=== PATIENT | male | born 1955 | race Caucasian/White ===

== ENCOUNTER 2017-01-05 15:11 | Outpatient (CLI) | payer MEDICARE ==
[2017-01-05 15:40] LABS: INR-International Normal Ratio 1.3; PTT 30.7 SEC (22.9-36.1); Prothrombin Time 16.9 SEC (12.0-14.7)
== END 2017-01-05 15:12 | disposition home or self-care (01) ==
LOC: HPCALD 15:11
PROVIDERS: ATTEND Physician Assistant
DX: Z51.81 Encounter for therapeutic drug level monitoring (principal); Z79.899 Other long term (current) drug therapy
CPT/HCPCS: 36415; 85610; 85730

== ENCOUNTER 2017-01-13 11:10 | Outpatient (CLI) | payer MEDICARE ==
[2017-01-13 11:59] LABS: INR-International Normal Ratio 2.1; Prothrombin Time 24.5 SEC (12.0-14.7)
[2017-01-13 12:00] LABS: PTT 38.2 SEC (22.9-36.1)
== END 2017-01-13 11:11 | disposition home or self-care (01) ==
LOC: HPCALD 11:10
PROVIDERS: ATTEND Physician Assistant
DX: I82.412 Acute embolism and thrombosis of left femoral vein (principal)
CPT/HCPCS: 36415; 85610; 85730

== ENCOUNTER 2017-01-20 10:29 | Outpatient (CLI) | payer MEDICARE ==
[2017-01-20 11:13] LABS: PTT 38.3 SEC (22.9-36.1); Prothrombin Time 23.5 SEC (12.0-14.7)
== END 2017-01-20 10:30 | disposition home or self-care (01) ==
LOC: HPCALD 10:29
PROVIDERS: ATTEND Physician Assistant
DX: I82.412 Acute embolism and thrombosis of left femoral vein (principal)
CPT/HCPCS: 36415; 85610; 85730

== ENCOUNTER 2017-02-03 10:36 | Outpatient (CLI) | payer MEDICARE ==
[2017-02-03 11:20] LABS: INR-International Normal Ratio 2.1; PTT 37.6 SEC (22.9-36.1); Prothrombin Time 23.9 SEC (12.0-14.7)
== END 2017-02-03 10:37 | disposition home or self-care (01) ==
LOC: HPCALD 10:36
PROVIDERS: ATTEND Physician Assistant
DX: I82.412 Acute embolism and thrombosis of left femoral vein (principal)
CPT/HCPCS: 36415; 85610; 85730

== ENCOUNTER 2017-02-17 11:20 | Outpatient (CLI) | payer MEDICARE ==
[2017-02-17 11:43] LABS: Prothrombin Time 13.7 SEC (12.0-14.7)
== END 2017-02-17 11:21 | disposition home or self-care (01) ==
LOC: HPCALD 11:20
PROVIDERS: ATTEND Physician Assistant
DX: I82.412 Acute embolism and thrombosis of left femoral vein (principal)
CPT/HCPCS: 36415; 85610

== ENCOUNTER 2017-03-07 09:37 | Outpatient (CLI) | payer MEDICARE ==
[2017-03-07 10:15] LABS: Prothrombin Time 32.7 SEC (12.0-14.7)
== END 2017-03-07 09:38 | disposition home or self-care (01) ==
LOC: HPCALD 09:37
PROVIDERS: ATTEND Physician Assistant
DX: I82.412 Acute embolism and thrombosis of left femoral vein (principal)
CPT/HCPCS: 36415; 85610

== ENCOUNTER 2017-03-23 09:10 | Outpatient (CLI) | payer MEDICARE ==
[2017-03-23 09:48] LABS: INR-International Normal Ratio 1.4; PTT 29.4 SEC (22.9-36.1); Prothrombin Time 17.4 SEC (12.0-14.7)
== END 2017-03-23 09:11 | disposition home or self-care (01) ==
LOC: HPCALD 09:10
PROVIDERS: ATTEND Physician Assistant
DX: Z51.81 Encounter for therapeutic drug level monitoring (principal); I82.412 Acute embolism and thrombosis of left femoral vein; Z79.01 Long term (current) use of anticoagulants
CPT/HCPCS: 36415; 85610; 85730

== ENCOUNTER 2020-03-10 10:07 | Emergency (ER) | payer MEDICARE ==
[2020-03-10 10:56] LABS: Hemoglobin 13.5 g/dL (14.0-18.0); Mean Corpuscular HGB CONC 33.2 g/dL (32.0-36.0); Mean Corpuscular Hemoglobin 35.3 pg (27.0-31.0); Mean Platelet Volume 8.7 fL (7.4-10.4); Platelet Count 254 thou/uL (130-400); Red Blood Cell (RBC) Count 3.82 mill/uL (4.70-6.10); White Blood Cell (WBC) Count 10.7 thou/uL (4.8-10.8)
[2020-03-10 11:10] LABS: ALT (SGPT) 17 U/L (8-55); AST (SGOT) 11 U/L (5-34); Albumin 3.7 g/dL (3.4-4.8); Alkaline Phosphatase 85 U/L (40-110); Anion Gap 16 mmol/L (10-20); BUN (Urea Nitrogen) 11 mg/dL (8.4-25.7); Bilirubin, Total 0.9 mg/dL (0.2-1.2); Calc. Creatinine Clearance 0 mL/min (70-130); Calcium 8.5 mg/dL (7.8-10.44); Carbon Dioxide 25 mmol/L (23-31); Chloride 99 mmol/L (98-107); Estimated GFR-MDRD 57; Globulin 3.9 g/dL (2.4-3.5); Glucose 328 mg/dL (80-115); Potassium 4.8 mmol/L (3.5-5.1); Protein, Total 7.6 g/dL (5.8-8.1); Sodium 135 mmol/L (136-145)
[2020-03-10 11:23] LABS: PTT 26.7 sec (22.9-36.1); Prothrombin Time 13.4 sec (12.0-14.7)
[2020-03-10 11:31] LABS: D-Dimer Test 1.55 *mcg/mL (0.27-0.43)
[2020-03-10 11:32] LABS: #Basophils 0.1 thou/uL (0.0-0.2); #Lymphocytes 0.9 thou/uL (1.20-3.40); #Monocytes 0.9 thou/uL (0.11-0.59); #Neutrophils 8.8 thou/uL (1.40-6.50); %Basophils 1.2 % (0.0-1.0); %Eosinophils 0.2 % (0.0-10.0); %Monocytes 8.3 % (0.0-10.0); %Neutrophils 82.3 % (42.0-75.0); MDiff Complete? YES; Macrocytosis SLIGHT = 6-15 cells (100X) (0-5/hpf); Platelet Morphology Comment Appears Adequate
[2020-03-10] MEDS ORDERED: Aspirin Chewable 81 MG TAB ONE (12:08)
[2020-03-10] MEDS ORDERED: Enoxaparin Sodium 100 MG/ML SYRINGE ONE (12:08)
--- NOTE | 2020-03-10 17:43 | CT ---
CT ANGIO OF THE CHEST: 03/10/[address] of the chest was done after a bolus of IV contrast for evaluation of this patient with leg pain and an elevated D-dimer. There is excellent opacification of the pulmonary arteries with no filling defects to suggest emboli. There was no sign of aortic aneurysm or dissection. There are probably some calcifications in the pa tient's LAD. No pericardial effusions were seen. There was no sign of mediastinal mass or adenopathy. Some dependent atelectasis is seen in the lower lobes posteriorly and there is an area of atelectasi s or scarring in the right lower lobe. There is no pleural effusion or pneumothorax. A portion of the liver was seen which is low in densities suggesting diffuse fatty infiltration. A po rtion of the spleen was seen that shows two lucent cystic appearing areas within it. It is difficult to fully assess since the entire spleen was not scanned but the most likely causes would be either sp lenic cysts or prior splenic infarction. There were no prior films available to compare with. IMPRESSION: 1. No evidence of pulmonary embolism, aneurysm or dissection. 2. Basilar atelectasis and scarring. 3. Cystic appearing areas in the visible portions of the spleen. Cysts or prior infarcts are con siderations. Preliminary report discussed with Dr. Samayoa at 12:28 on 03/10/20. POS: HOME
== END 2020-03-10 13:18 | disposition short-term general hospital (02) ==
LOC: BURERS 10:07
DX: I82.403 Acute embolism and thrombosis of unspecified deep veins of lower extremity, bilateral (principal); D64.9 Anemia, unspecified; E11.65 Type 2 diabetes mellitus with hyperglycemia; I10 Essential (primary) hypertension; Z86.73 Personal history of transient ischemic attack (TIA), and cerebral infarction without residual deficits; F17.210 Nicotine dependence, cigarettes, uncomplicated; Z79.84 Long term (current) use of oral hypoglycemic drugs; Z79.899 Other long term (current) drug therapy
CPT/HCPCS: 71275; 80053; 80307; 85025; 85379; 85610; 85730; 93005; 96360; 96372; J1650

== ENCOUNTER 2020-05-27 12:30 | Emergency (ER) | payer MEDICARE ==
[2020-05-27 13:12] LABS: Hemoglobin 15.4 g/dL (14.0-18.0); Mean Platelet Volume 9.3 fL (7.4-10.4); Platelet Count 318 thou/uL (130-400); RBC Distribution Width 12.4 % (11.5-14.5); Red Blood Cell (RBC) Count 4.27 mill/uL (4.70-6.10); White Blood Cell (WBC) Count 12.9 thou/uL (4.8-10.8)
[2020-05-27 13:17] LABS: Prothrombin Time 13.4 sec (12.0-14.7)
[2020-05-27 13:18] LABS: PTT 28.3 sec (22.9-36.1)
[2020-05-27 13:20] LABS: Bilirubin Small (Negative); Blood, Urine Negative (Negative); Clarity Clear (Clear); Glucose, Urine (Dipstick) 500 mg/dL (Negative); Ketone, Urine 15 mg/dL (Negative); Leukocyte Negative (Negative); Nitrite Negative (Negative); Protein, Urine (Dipstick) Trace mg/dL (Neg-Trace); Specific Gravity, Urine 1.025 (1.005-1.030); Urobilinogen 0.2 mg/dL (Less than 2)
[2020-05-27 13:27] LABS: ALT (SGPT) 27 U/L (8-55); AST (SGOT) 15 U/L (5-34); Alcohol Less than 10 mg/dL (Less than 10); Alkaline Phosphatase 88 U/L (40-110); Anion Gap 20 mmol/L (10-20); BUN (Urea Nitrogen) 18 mg/dL (8.4-25.7); Bilirubin, Total 1.3 mg/dL (0.2-1.2); Calc. Creatinine Clearance 0 mL/min (70-130); Calcium 9.5 mg/dL (7.8-10.44); Carbon Dioxide 24 mmol/L (23-31); Chloride 98 mmol/L (98-107); Globulin 4.3 g/dL (2.4-3.5); Glucose 370 mg/dL (80-115); Potassium 4.7 mmol/L (3.5-5.1); Protein, Total 8.3 g/dL (5.8-8.1)
[2020-05-27] MEDS ORDERED: cefTRIAXone\\ROCEPHIN 1 GM VIAL ONE (13:28)
[2020-05-27 13:32] LABS: #Basophils 0.1 thou/uL (0.0-0.2); #Eosinphils 0.1 thou/uL (0.0-0.7); #Lymphocytes 2.4 thou/uL (1.20-3.40); #Neutrophils 9.4 thou/uL (1.40-6.50); %Basophils 0.5 % (0.0-1.0); %Eosinophils 0.7 % (0.0-10.0); %Lymphocytes 18.5 % (21.0-51.0); %Monocytes 7.3 % (0.0-10.0); Anisocytosis SLIGHT = 6-15 cells (100X) (0-5/hpf); MDiff Complete? YES; Macrocytosis SLIGHT = 6-15 cells (100X) (0-5/hpf); Platelet Morphology Comment Appears Adequate; Polychromasia SLIGHT = 2-3 cells (100X) (0-2/hpf)
[2020-05-27 13:33] LABS: Amphetamine Not Detected (NotDetected); Barbiturates Screen Not Detected (NotDetected); Benzodiazepine Screen Not Detected (NotDetected); Cocaine Metabolite Screen Not Detected (NotDetected); Medtox Control Line Valid? VALID (VALID); Methadone Not Detected (NotDetected); Methamphetamine Not Detected (NotDetected); Opiate Screen Not Detected (NotDetected); Oxycodone Screen Not Detected (NotDetected); Phencyclidine (PCP) Not Detected (NotDetected); THC/Cannabinoid Screen Not Detected (NotDetected); Tricyclic Screen Not Detected (NotDetected)
[2020-05-27 13:34] LABS: Sodium 137 mmol/L (136-145)
[2020-05-27] MEDS ORDERED: Insulin Regular 300 UNITS/3 ML VIAL ONE (13:34)
[2020-05-27] MEDS ORDERED: Aspirin Chewable 81 MG TAB ONE (14:22)
--- NOTE | 2020-05-27 16:02 | RAD ---
PORTABLE CHEST 05/27/20 An AP portable film at 1353 is compared with a 12/28/13 study. The heart is normal in size given an AP projection, body habitus, and the patient being obliqued sli ghtly. There is no congestive change or pleural effusion. The lungs are clear. No mediastinal abnorma lity was appreciated. IMPRESSION: No acute finding. POS: HOME
== END 2020-05-27 14:45 | disposition short-term general hospital (02) ==
LOC: BURERS 12:30
DX: I77.1 Stricture of artery (principal); E11.65 Type 2 diabetes mellitus with hyperglycemia; E11.9 Type 2 diabetes mellitus without complications; Z86.73 Personal history of transient ischemic attack (TIA), and cerebral infarction without residual deficits; I10 Essential (primary) hypertension; F17.210 Nicotine dependence, cigarettes, uncomplicated; Z79.84 Long term (current) use of oral hypoglycemic drugs; Z79.899 Other long term (current) drug therapy
CPT/HCPCS: 36415; 36416; 71045; 80053; 80306; 80307; 81003; 83605; 83880; 84484; 85025; 85610; 85730; 87040; 93005; 96374; 96375; J0696; J1815

== ENCOUNTER 2020-10-01 08:29 | Emergency (ER) | payer MEDICARE ==
[2020-10-01 09:11] LABS: #Basophils 0.1 thou/uL (0.0-0.2); #Eosinphils 0.2 thou/uL (0.0-0.7); #Lymphocytes 2.4 thou/uL (1.20-3.40); #Monocytes 0.8 thou/uL (0.11-0.59); #Neutrophils 7.4 thou/uL (1.40-6.50); %Basophils 0.9 % (0.0-1.0); %Eosinophils 1.9 % (0.0-10.0); %Lymphocytes 21.8 % (21.0-51.0); %Monocytes 7.3 % (0.0-10.0); %Neutrophils 68.1 % (42.0-75.0); Hemoglobin 13.6 g/dL (14.0-18.0); Mean Corpuscular HGB CONC 33.4 g/dL (32.0-36.0); Mean Corpuscular Volume 98.7 fL (78.0-98.0); Mean Platelet Volume 8.2 fL (7.4-10.4); Platelet Count 361 thou/uL (130-400); RBC Distribution Width 11.7 % (11.5-14.5); Red Blood Cell (RBC) Count 4.12 mill/uL (4.70-6.10); White Blood Cell (WBC) Count 10.9 thou/uL (4.8-10.8)
[2020-10-01 09:25] LABS: ALT (SGPT) 9 U/L (8-55); AST (SGOT) 10 U/L (5-34); Albumin 3.8 g/dL (3.4-4.8); Alkaline Phosphatase 97 U/L (40-110); Anion Gap 15 mmol/L (10-20); BUN (Urea Nitrogen) 17 mg/dL (8.4-25.7); Bilirubin, Total 0.4 mg/dL (0.2-1.2); Calc. Creatinine Clearance 0 mL/min (70-130); Carbon Dioxide 25 mmol/L (23-31); Chloride 106 mmol/L (98-107); Globulin 4.1 g/dL (2.4-3.5); Glucose 88 mg/dL (80-115); Potassium 4.4 mmol/L (3.5-5.1); Protein, Total 7.9 g/dL (5.8-8.1); Sodium 142 mmol/L (136-145)
== END 2020-10-01 11:15 | disposition home or self-care (01) ==
LOC: BURERS 08:29
DX: R53.1 Weakness (principal); I10 Essential (primary) hypertension; E11.52 Type 2 diabetes mellitus with diabetic peripheral angiopathy with gangrene; I96 Gangrene, not elsewhere classified; F17.210 Nicotine dependence, cigarettes, uncomplicated; Z86.73 Personal history of transient ischemic attack (TIA), and cerebral infarction without residual deficits; Z86.718 Personal history of other venous thrombosis and embolism
CPT/HCPCS: 36415; 80053; 84484; 85025; 93005

== ENCOUNTER 2020-10-27 17:03 | Emergency (ER) | payer MEDICARE | END 2020-10-27 17:32 | disposition home or self-care (01) | LOC: BURERS 17:03 | DX: E11.52 Type 2 diabetes mellitus with diabetic peripheral angiopathy with gangrene (principal); I96 Gangrene, not elsewhere classified; I10 Essential (primary) hypertension; F17.210 Nicotine dependence, cigarettes, uncomplicated; Z86.73 Personal history of transient ischemic attack (TIA), and cerebral infarction without residual deficits; Z86.718 Personal history of other venous thrombosis and embolism | CPT/HCPCS: 99281 ==

== ENCOUNTER 2020-12-10 11:17 | Inpatient (IN) | payer MEDICARE ==
[2020-12-10] MEDS ORDERED: Dextrose 5% in Water 1,000 ML IV PRN (22:15)
[2020-12-10] MEDS ORDERED: Dextrose 50% Abboject 50 ML SYRINGE IVP PRN (22:15)
[2020-12-10] MEDS: HYDROcodone/Acetaminophen 10/325 mg Tablet PO PRN (22:33)
[2020-12-10] MEDS: Insulin Regular 300 UNITS/3 ML VIAL SC PRN (23:27)
[2020-12-11] MEDS ORDERED: Non-Formulary Item 1 EACH (Lisinopril [Zestril] 2.5 MG Tab) PO SCH (09:00)
[2020-12-11] MEDS ORDERED: Aspirin 325 mg Enteric Coated Tablet PO SCH ×2 (09:00)
[2020-12-11] MEDS ORDERED: Non-Formulary Item 1 EACH (Metformin Hcl [Metformin Hcl] 1,000 MG Tablet) PO SCH (09:00)
[2020-12-11] MEDS: HYDROcodone/Acetaminophen 10/325 mg Tablet PO PRN ×3 (09:32→21:40)
[2020-12-11] MEDS: Famotidine 20 MG TAB PO SCH ×2 (11:02→21:35)
[2020-12-11] MEDS: Amlodipine 5 MG TAB PO SCH (11:03)
[2020-12-11] MEDS: Aspirin 81 mg Enteric Coated Tablet PO SCH (11:03)
[2020-12-11] MEDS: metFORMIN 500 MG TAB PO SCH ×2 (11:03→18:08)
[2020-12-11] MEDS: Clopidogrel Bisulfate 75 MG TAB PO SCH (11:04)
[2020-12-11] MEDS: Heparin 5,000 UNITS/ML VIAL SC SCH ×2 (11:04→21:35)
[2020-12-11] MEDS: Lisinopril 10 MG TAB PO SCH (11:04)
[2020-12-11] MEDS: Insulin Regular 300 UNITS/3 ML VIAL SC PRN ×3 (11:05→21:35)
[2020-12-11] MEDS ORDERED: Non-Formulary Item 1 EACH (Lovastatin [Lovastatin] 20 MG Tablet) PO SCH (17:00)
[2020-12-11] MEDS: Ibuprofen 800 MG TAB PO PRN (18:05)
[2020-12-11] MEDS: Atorvastatin Calcium 40 MG TAB PO SCH (21:34)
[2020-12-12] MEDS: HYDROcodone/Acetaminophen 10/325 mg Tablet PO PRN ×2 (05:39→16:48)
[2020-12-12 06:28] LABS: #Eosinphils 0.2 thou/uL (0.0-0.7); #Lymphocytes 2.4 thou/uL (1.20-3.40); #Monocytes 0.8 thou/uL (0.11-0.59); #Neutrophils 5.1 thou/uL (1.40-6.50); %Basophils 0.5 % (0.0-1.0); %Eosinophils 2.5 % (0.0-10.0); %Lymphocytes 27.8 % (21.0-51.0); %Monocytes 9.2 % (0.0-10.0); Hemoglobin 11.6 g/dL (14.0-18.0); Mean Corpuscular HGB CONC 33.1 g/dL (32.0-36.0); Mean Corpuscular Hemoglobin 31.3 pg (27.0-31.0); Mean Corpuscular Volume 94.6 fL (78.0-98.0); Mean Platelet Volume 8.1 fL (7.4-10.4); Platelet Count 476 thou/uL (130-400); RBC Distribution Width 13.4 % (11.5-14.5); Red Blood Cell (RBC) Count 3.71 mill/uL (4.70-6.10); White Blood Cell (WBC) Count 8.5 thou/uL (4.8-10.8)
[2020-12-12 06:43] LABS: ALT (SGPT) 15 U/L (8-55); AST (SGOT) 16 U/L (5-34); Albumin 3.3 g/dL (3.4-4.8); Alkaline Phosphatase 72 U/L (40-110); Anion Gap 16 mmol/L (10-20); BUN (Urea Nitrogen) 12 mg/dL (8.4-25.7); Bilirubin, Total 0.4 mg/dL (0.2-1.2); Calc. Creatinine Clearance 74 mL/min (70-130); Calcium 9.3 mg/dL (7.8-10.44); Carbon Dioxide 25 mmol/L (23-31); Chloride 101 mmol/L (98-107); Globulin 4.6 g/dL (2.4-3.5); Glucose 226 mg/dL (80-115); Potassium 3.2 mmol/L (3.5-5.1); Protein, Total 7.9 g/dL (5.8-8.1); Sodium 139 mmol/L (136-145)
[2020-12-12] MEDS: Amlodipine 5 MG TAB PO SCH (08:55)
[2020-12-12] MEDS: metFORMIN 500 MG TAB PO SCH ×2 (08:55→16:40)
[2020-12-12] MEDS: Aspirin 81 mg Enteric Coated Tablet PO SCH (08:55)
[2020-12-12] MEDS: Famotidine 20 MG TAB PO SCH ×2 (08:56→20:54)
[2020-12-12] MEDS: Lisinopril 10 MG TAB PO SCH (08:56)
[2020-12-12] MEDS: Clopidogrel Bisulfate 75 MG TAB PO SCH (08:56)
[2020-12-12] MEDS: Heparin 5,000 UNITS/ML VIAL SC SCH ×2 (08:57→20:54)
[2020-12-12] MEDS: Ibuprofen 800 MG TAB PO PRN ×2 (08:57→21:04)
[2020-12-12] MEDS: Insulin Regular 300 UNITS/3 ML VIAL SC PRN (12:11)
[2020-12-12] MEDS: Atorvastatin Calcium 40 MG TAB PO SCH (20:54)
[2020-12-13] MEDS: HYDROcodone/Acetaminophen 10/325 mg Tablet PO PRN ×3 (00:33→20:06)
[2020-12-13] MEDS: metFORMIN 500 MG TAB PO SCH ×2 (08:35→16:23)
[2020-12-13] MEDS: Aspirin 81 mg Enteric Coated Tablet PO SCH (08:36)
[2020-12-13] MEDS: Clopidogrel Bisulfate 75 MG TAB PO SCH (08:36)
[2020-12-13] MEDS: Lisinopril 10 MG TAB PO SCH (08:36)
[2020-12-13] MEDS: Famotidine 20 MG TAB PO SCH ×2 (08:37→20:07)
[2020-12-13] MEDS: Heparin 5,000 UNITS/ML VIAL SC SCH ×2 (08:37→20:07)
[2020-12-13] MEDS: Amlodipine 5 MG TAB PO SCH (08:37)
[2020-12-13] MEDS: Insulin Regular 300 UNITS/3 ML VIAL SC PRN ×2 (08:38→11:40)
[2020-12-13] MEDS: Ibuprofen 800 MG TAB PO PRN (11:43)
[2020-12-13] MEDS: Atorvastatin Calcium 40 MG TAB PO SCH (20:07)
[2020-12-14] MEDS: Ibuprofen 800 MG TAB PO PRN ×3 (00:20→18:07)
[2020-12-14] MEDS: HYDROcodone/Acetaminophen 10/325 mg Tablet PO PRN ×3 (04:58→22:18)
[2020-12-14 06:10] LABS: Anion Gap 12 mmol/L (10-20); BUN (Urea Nitrogen) 16 mg/dL (8.4-25.7); Calc. Creatinine Clearance 83 mL/min (70-130); Carbon Dioxide 27 mmol/L (23-31); Chloride 103 mmol/L (98-107); Glucose 168 mg/dL (80-115); Potassium 3.9 mmol/L (3.5-5.1); Sodium 138 mmol/L (136-145)
[2020-12-14] MEDS: metFORMIN 500 MG TAB PO SCH ×3 (08:57→18:07)
[2020-12-14] MEDS: Clopidogrel Bisulfate 75 MG TAB PO SCH (08:58)
[2020-12-14] MEDS: Lisinopril 10 MG TAB PO SCH (08:58)
[2020-12-14] MEDS: Amlodipine 5 MG TAB PO SCH (08:58)
[2020-12-14] MEDS: Aspirin 81 mg Enteric Coated Tablet PO SCH (08:59)
[2020-12-14] MEDS: Heparin 5,000 UNITS/ML VIAL SC SCH ×2 (08:59→20:23)
[2020-12-14] MEDS: Famotidine 20 MG TAB PO SCH ×2 (08:59→20:23)
[2020-12-14] MEDS: Insulin Regular 300 UNITS/3 ML VIAL SC PRN ×2 (09:00→12:34)
[2020-12-14] MEDS: Atorvastatin Calcium 40 MG TAB PO SCH (20:23)
[2020-12-15] MEDS: HYDROcodone/Acetaminophen 10/325 mg Tablet PO PRN ×3 (05:54→18:21)
[2020-12-15] MEDS: Aspirin 81 mg Enteric Coated Tablet PO SCH (08:27)
[2020-12-15] MEDS: metFORMIN 500 MG TAB PO SCH ×2 (08:27→16:20)
[2020-12-15] MEDS: Clopidogrel Bisulfate 75 MG TAB PO SCH (08:28)
[2020-12-15] MEDS: Lisinopril 10 MG TAB PO SCH (08:28)
[2020-12-15] MEDS: Amlodipine 5 MG TAB PO SCH (08:28)
[2020-12-15] MEDS: Famotidine 20 MG TAB PO SCH ×2 (08:28→20:21)
[2020-12-15] MEDS: Heparin 5,000 UNITS/ML VIAL SC SCH ×2 (08:29→20:21)
[2020-12-15] MEDS: Ibuprofen 800 MG TAB PO PRN ×2 (08:29→21:58)
[2020-12-15] MEDS: Insulin Regular 300 UNITS/3 ML VIAL SC PRN (12:15)
[2020-12-15] MEDS: Atorvastatin Calcium 40 MG TAB PO SCH (20:21)
[2020-12-16] MEDS: HYDROcodone/Acetaminophen 10/325 mg Tablet PO PRN ×4 (00:26→20:34)
[2020-12-16] MEDS: Acetaminophen 325 MG TAB PO PRN ×2 (02:26→17:30)
[2020-12-16] MEDS: metFORMIN 500 MG TAB PO SCH ×2 (08:11→17:30)
[2020-12-16] MEDS: Amlodipine 5 MG TAB PO SCH (11:16)
[2020-12-16] MEDS: Lisinopril 10 MG TAB PO SCH (11:18)
[2020-12-16] MEDS: Famotidine 20 MG TAB PO SCH ×2 (11:18→20:35)
[2020-12-16] MEDS: Clopidogrel Bisulfate 75 MG TAB PO SCH (11:18)
[2020-12-16] MEDS: Heparin 5,000 UNITS/ML VIAL SC SCH ×2 (11:18→20:35)
[2020-12-16] MEDS: Aspirin 81 mg Enteric Coated Tablet PO SCH (11:19)
[2020-12-16] MEDS: Ibuprofen 800 MG TAB PO PRN ×2 (11:30→23:30)
[2020-12-16] MEDS: Insulin Regular 300 UNITS/3 ML VIAL SC PRN (12:46)
[2020-12-16] MEDS: Atorvastatin Calcium 40 MG TAB PO SCH (20:35)
[2020-12-17] MEDS: HYDROcodone/Acetaminophen 10/325 mg Tablet PO PRN ×2 (05:03→16:26)
[2020-12-17] MEDS: Famotidine 20 MG TAB PO SCH ×2 (08:31→20:12)
[2020-12-17] MEDS: Amlodipine 5 MG TAB PO SCH (08:31)
[2020-12-17] MEDS: metFORMIN 500 MG TAB PO SCH ×2 (08:31→16:26)
[2020-12-17] MEDS: Clopidogrel Bisulfate 75 MG TAB PO SCH (08:31)
[2020-12-17] MEDS: Heparin 5,000 UNITS/ML VIAL SC SCH ×2 (08:32→20:08)
[2020-12-17] MEDS: Aspirin 81 mg Enteric Coated Tablet PO SCH (08:32)
[2020-12-17] MEDS ORDERED: Lisinopril 20 MG TAB PO SCH (09:00)
[2020-12-17] MEDS: Acetaminophen 325 MG TAB PO PRN ×2 (12:39→20:09)
[2020-12-17] MEDS: Ibuprofen 800 MG TAB PO PRN (20:10)
[2020-12-17] MEDS: Atorvastatin Calcium 40 MG TAB PO SCH (20:11)
[2020-12-18] MEDS: HYDROcodone/Acetaminophen 10/325 mg Tablet PO PRN ×3 (01:18→21:52)
[2020-12-18] MEDS: Acetaminophen 325 MG TAB PO PRN (02:17)
[2020-12-18] MEDS: Insulin Regular 300 UNITS/3 ML VIAL SC PRN (07:45)
[2020-12-18] MEDS: Amlodipine 5 MG TAB PO SCH (07:46)
[2020-12-18] MEDS: metFORMIN 500 MG TAB PO SCH ×2 (07:46→17:13)
[2020-12-18] MEDS: Heparin 5,000 UNITS/ML VIAL SC SCH ×2 (07:46→20:10)
[2020-12-18] MEDS: Aspirin 81 mg Enteric Coated Tablet PO SCH (07:46)
[2020-12-18] MEDS: Famotidine 20 MG TAB PO SCH ×2 (07:47→20:10)
[2020-12-18] MEDS: Lisinopril 20 MG TAB PO SCH (07:47)
[2020-12-18] MEDS: Clopidogrel Bisulfate 75 MG TAB PO SCH (07:47)
[2020-12-18] MEDS: Atorvastatin Calcium 40 MG TAB PO SCH (20:11)
[2020-12-19] MEDS: Acetaminophen 325 MG TAB PO PRN ×3 (01:20→20:00)
[2020-12-19] MEDS: Ibuprofen 800 MG TAB PO PRN ×2 (01:21→18:05)
[2020-12-19] MEDS: HYDROcodone/Acetaminophen 10/325 mg Tablet PO PRN ×3 (05:44→21:25)
[2020-12-19] MEDS: metFORMIN 500 MG TAB PO SCH ×2 (07:53→16:48)
[2020-12-19] MEDS: Clopidogrel Bisulfate 75 MG TAB PO SCH (07:53)
[2020-12-19] MEDS: Amlodipine 5 MG TAB PO SCH (07:53)
[2020-12-19] MEDS: Lisinopril 20 MG TAB PO SCH (07:54)
[2020-12-19] MEDS: Famotidine 20 MG TAB PO SCH ×2 (07:54→19:59)
[2020-12-19] MEDS: Aspirin 81 mg Enteric Coated Tablet PO SCH (07:54)
[2020-12-19] MEDS: Insulin Regular 300 UNITS/3 ML VIAL SC PRN ×2 (07:58→16:49)
[2020-12-19] MEDS: Heparin 5,000 UNITS/ML VIAL SC SCH ×2 (08:00→20:01)
[2020-12-19] MEDS: Atorvastatin Calcium 40 MG TAB PO SCH (20:00)
[2020-12-20] MEDS: HYDROcodone/Acetaminophen 10/325 mg Tablet PO PRN ×3 (03:20→17:59)
[2020-12-20] MEDS: metFORMIN 500 MG TAB PO SCH ×2 (07:34→16:44)
[2020-12-20] MEDS: Insulin Regular 300 UNITS/3 ML VIAL SC PRN (07:35)
[2020-12-20] MEDS: Lisinopril 20 MG TAB PO SCH (08:06)
[2020-12-20] MEDS: Heparin 5,000 UNITS/ML VIAL SC SCH ×2 (08:07→20:47)
[2020-12-20] MEDS: Famotidine 20 MG TAB PO SCH ×2 (08:07→20:46)
[2020-12-20] MEDS: Clopidogrel Bisulfate 75 MG TAB PO SCH (08:07)
[2020-12-20] MEDS: Amlodipine 5 MG TAB PO SCH (08:07)
[2020-12-20] MEDS: Aspirin 81 mg Enteric Coated Tablet PO SCH (08:07)
[2020-12-20] MEDS: Ibuprofen 800 MG TAB PO PRN (15:22)
[2020-12-20] MEDS: Atorvastatin Calcium 40 MG TAB PO SCH (20:46)
[2020-12-20] MEDS: Acetaminophen 325 MG TAB PO PRN (22:50)
[2020-12-21] MEDS: HYDROcodone/Acetaminophen 10/325 mg Tablet PO PRN ×4 (00:27→20:52)
[2020-12-21] MEDS: Ibuprofen 800 MG TAB PO PRN ×2 (03:23→16:13)
[2020-12-21] MEDS ORDERED: Amlodipine 5 MG TAB PO SCH (06:53)
[2020-12-21] MEDS: metFORMIN 500 MG TAB PO SCH ×2 (07:21→17:07)
[2020-12-21] MEDS: Clopidogrel Bisulfate 75 MG TAB PO SCH (07:21)
[2020-12-21] MEDS: Aspirin 81 mg Enteric Coated Tablet PO SCH (07:21)
[2020-12-21] MEDS: Lisinopril 20 MG TAB PO SCH (07:22)
[2020-12-21] MEDS: Amlodipine 10 MG TAB PO SCH (07:22)
[2020-12-21] MEDS: Famotidine 20 MG TAB PO SCH ×2 (07:22→20:49)
[2020-12-21] MEDS: Insulin Regular 300 UNITS/3 ML VIAL SC PRN (17:07)
[2020-12-21] MEDS: Atorvastatin Calcium 40 MG TAB PO SCH (20:49)
[2020-12-21] MEDS: Acetaminophen 325 MG TAB PO PRN (23:17)
[2020-12-22] MEDS: Ibuprofen 800 MG TAB PO PRN ×2 (05:50→20:29)
[2020-12-22] MEDS: Amlodipine 10 MG TAB PO SCH (07:30)
[2020-12-22] MEDS: Famotidine 20 MG TAB PO SCH ×2 (07:30→20:29)
[2020-12-22] MEDS: metFORMIN 500 MG TAB PO SCH ×2 (07:30→16:58)
[2020-12-22] MEDS: Clopidogrel Bisulfate 75 MG TAB PO SCH (07:31)
[2020-12-22] MEDS: Lisinopril 20 MG TAB PO SCH (07:31)
[2020-12-22] MEDS: Aspirin 81 mg Enteric Coated Tablet PO SCH (07:31)
[2020-12-22] MEDS: HYDROcodone/Acetaminophen 10/325 mg Tablet PO PRN ×2 (09:36→16:07)
[2020-12-22] MEDS: Acetaminophen 325 MG TAB PO PRN (12:04)
[2020-12-22] MEDS: Atorvastatin Calcium 40 MG TAB PO SCH (20:29)
[2020-12-23] MEDS: HYDROcodone/Acetaminophen 10/325 mg Tablet PO PRN ×3 (01:51→20:05)
[2020-12-23] MEDS: metFORMIN 500 MG TAB PO SCH ×2 (07:45→17:01)
[2020-12-23] MEDS: Amlodipine 10 MG TAB PO SCH (08:15)
[2020-12-23] MEDS: Aspirin 81 mg Enteric Coated Tablet PO SCH (08:15)
[2020-12-23] MEDS: Famotidine 20 MG TAB PO SCH ×2 (08:16→20:05)
[2020-12-23] MEDS: Lisinopril 20 MG TAB PO SCH (08:16)
[2020-12-23] MEDS: Clopidogrel Bisulfate 75 MG TAB PO SCH (08:16)
[2020-12-23] MEDS: Ibuprofen 800 MG TAB PO PRN (11:31)
[2020-12-23 13:34] VITALS: BMI 22.9
[2020-12-23] MEDS: Atorvastatin Calcium 40 MG TAB PO SCH (20:05)
[2020-12-24] MEDS: Ibuprofen 800 MG TAB PO PRN ×2 (02:05→14:16)
[2020-12-24] MEDS: HYDROcodone/Acetaminophen 10/325 mg Tablet PO PRN ×3 (05:15→18:41)
[2020-12-24] MEDS: metFORMIN 500 MG TAB PO SCH ×2 (07:32→16:57)
[2020-12-24] MEDS: Acetaminophen 325 MG TAB PO PRN ×2 (08:15→23:47)
[2020-12-24] MEDS: Amlodipine 10 MG TAB PO SCH (08:16)
[2020-12-24] MEDS: Aspirin 81 mg Enteric Coated Tablet PO SCH (08:17)
[2020-12-24] MEDS: Clopidogrel Bisulfate 75 MG TAB PO SCH (08:17)
[2020-12-24] MEDS: Famotidine 20 MG TAB PO SCH ×2 (08:17→21:07)
[2020-12-24] MEDS: Lisinopril 20 MG TAB PO SCH (08:17)
[2020-12-24] MEDS: Insulin Regular 300 UNITS/3 ML VIAL SC PRN (08:19)
[2020-12-25] MEDS: HYDROcodone/Acetaminophen 10/325 mg Tablet PO PRN ×3 (03:26→18:55)
[2020-12-25] MEDS: metFORMIN 500 MG TAB PO SCH ×2 (07:46→17:04)
[2020-12-25] MEDS: Amlodipine 10 MG TAB PO SCH (09:26)
[2020-12-25] MEDS: Lisinopril 20 MG TAB PO SCH (09:26)
[2020-12-25] MEDS: Clopidogrel Bisulfate 75 MG TAB PO SCH (09:26)
[2020-12-25] MEDS: Aspirin 81 mg Enteric Coated Tablet PO SCH (09:27)
[2020-12-25] MEDS: Famotidine 20 MG TAB PO SCH ×2 (09:27→20:26)
[2020-12-25] MEDS: Atorvastatin Calcium 40 MG TAB PO SCH (20:26)
[2020-12-25] MEDS: Ibuprofen 800 MG TAB PO PRN (20:26)
[2020-12-25] MEDS: Acetaminophen 325 MG TAB PO PRN (20:27)
[2020-12-26] MEDS: HYDROcodone/Acetaminophen 10/325 mg Tablet PO PRN ×2 (01:02→20:34)
[2020-12-26] MEDS: Aspirin 81 mg Enteric Coated Tablet PO SCH (08:22)
[2020-12-26] MEDS: metFORMIN 500 MG TAB PO SCH ×2 (08:22→16:48)
[2020-12-26] MEDS: Lisinopril 20 MG TAB PO SCH (08:22)
[2020-12-26] MEDS: Clopidogrel Bisulfate 75 MG TAB PO SCH (08:23)
[2020-12-26] MEDS: Famotidine 20 MG TAB PO SCH ×2 (08:23→20:34)
[2020-12-26] MEDS: Amlodipine 10 MG TAB PO SCH (08:23)
[2020-12-26] MEDS: Insulin Regular 300 UNITS/3 ML VIAL SC PRN (08:24)
[2020-12-26] MEDS: Atorvastatin Calcium 40 MG TAB PO SCH (20:34)
[2020-12-26] MEDS: Acetaminophen 325 MG TAB PO PRN (23:12)
[2020-12-26] MEDS: Ibuprofen 800 MG TAB PO PRN (23:12)
[2020-12-27] MEDS: HYDROcodone/Acetaminophen 10/325 mg Tablet PO PRN ×3 (02:35→19:15)
[2020-12-27] MEDS: metFORMIN 500 MG TAB PO SCH ×2 (07:48→16:56)
[2020-12-27] MEDS: Aspirin 81 mg Enteric Coated Tablet PO SCH (08:28)
[2020-12-27] MEDS: Lisinopril 20 MG TAB PO SCH (08:29)
[2020-12-27] MEDS: Amlodipine 10 MG TAB PO SCH (08:30)
[2020-12-27] MEDS: Famotidine 20 MG TAB PO SCH ×2 (08:30→21:17)
[2020-12-27] MEDS: Clopidogrel Bisulfate 75 MG TAB PO SCH (08:30)
[2020-12-27] MEDS: Senokot 8.6 MG TAB PO PRN (09:02)
[2020-12-27] MEDS: Atorvastatin Calcium 40 MG TAB PO SCH (21:17)
[2020-12-28] MEDS: HYDROcodone/Acetaminophen 10/325 mg Tablet PO PRN ×4 (01:14→22:05)
[2020-12-28] MEDS: Aspirin 81 mg Enteric Coated Tablet PO SCH (07:39)
[2020-12-28] MEDS: Amlodipine 10 MG TAB PO SCH (07:39)
[2020-12-28] MEDS: metFORMIN 500 MG TAB PO SCH ×2 (07:39→16:01)
[2020-12-28] MEDS: Clopidogrel Bisulfate 75 MG TAB PO SCH (07:40)
[2020-12-28] MEDS: Lisinopril 20 MG TAB PO SCH (07:40)
[2020-12-28] MEDS: Famotidine 20 MG TAB PO SCH ×2 (07:41→20:35)
[2020-12-28] MEDS: Ibuprofen 800 MG TAB PO PRN (10:59)
[2020-12-28] MEDS: Insulin Regular 300 UNITS/3 ML VIAL SC PRN (12:01)
[2020-12-28] MEDS: Atorvastatin Calcium 40 MG TAB PO SCH (20:35)
[2020-12-29] MEDS: metFORMIN 500 MG TAB PO SCH ×2 (07:48→16:57)
[2020-12-29] MEDS: HYDROcodone/Acetaminophen 10/325 mg Tablet PO PRN ×2 (07:48→18:49)
[2020-12-29] MEDS: Lisinopril 20 MG TAB PO SCH (08:49)
[2020-12-29] MEDS: Clopidogrel Bisulfate 75 MG TAB PO SCH (08:49)
[2020-12-29] MEDS: Aspirin 81 mg Enteric Coated Tablet PO SCH (08:49)
[2020-12-29] MEDS: Famotidine 20 MG TAB PO SCH ×2 (08:49→20:54)
[2020-12-29] MEDS: Amlodipine 10 MG TAB PO SCH (08:50)
[2020-12-29] MEDS: Ibuprofen 800 MG TAB PO PRN (12:13)
[2020-12-29] MEDS: Senokot 8.6 MG TAB PO PRN (18:50)
[2020-12-29] MEDS: Atorvastatin Calcium 40 MG TAB PO SCH (20:54)
[2020-12-30] MEDS: HYDROcodone/Acetaminophen 10/325 mg Tablet PO PRN ×2 (02:39→08:27)
[2020-12-30] MEDS: Ibuprofen 800 MG TAB PO PRN (06:09)
[2020-12-30] MEDS: metFORMIN 500 MG TAB PO SCH (07:49)
[2020-12-30] MEDS: Aspirin 81 mg Enteric Coated Tablet PO SCH (08:26)
[2020-12-30] MEDS: Clopidogrel Bisulfate 75 MG TAB PO SCH (08:26)
[2020-12-30] MEDS: Famotidine 20 MG TAB PO SCH (08:26)
[2020-12-30] MEDS: Amlodipine 10 MG TAB PO SCH (08:28)
[2020-12-30] MEDS: Lisinopril 20 MG TAB PO SCH (08:28)
[2020-12-30 12:38] VITALS: BP 111/56; TEMP 98
== END 2020-12-30 13:10 | DRG 561 ==
LOC: BURMED 20:15
PROVIDERS: ADMIT Family Medicine; ATTEND Family Medicine
DX: Z47.81 Encounter for orthopedic aftercare following surgical amputation (principal); E11.9 Type 2 diabetes mellitus without complications; E78.5 Hyperlipidemia, unspecified; I10 Essential (primary) hypertension
CPT/HCPCS: 36415; 36416; 80048; 80053; 85025; J1644; J1815

== ENCOUNTER 2021-12-31 11:10 | Emergency (ER) | payer MEDICARE ==
[2021-12-31 12:04] LABS: #Basophils 0.1 thou/uL (0.0-0.2); #Eosinphils 0.2 thou/uL (0.0-0.7); #Lymphocytes 2.8 thou/uL (1.20-3.40); #Neutrophils 7.2 thou/uL (1.40-6.50); %Lymphocytes 24.6 % (21.0-51.0); %Neutrophils 63.4 % (42.0-75.0); Hemoglobin 13.8 g/dL (14.0-18.0); Mean Corpuscular Volume 94.1 fL (78.0-98.0); Mean Platelet Volume 9.7 fL (7.4-10.4); Platelet Count 322 thou/uL (130-400); RBC Distribution Width 11.9 % (11.5-14.5); Red Blood Cell (RBC) Count 4.32 mill/uL (4.70-6.10); White Blood Cell (WBC) Count 11.4 thou/uL (4.8-10.8)
[2021-12-31 12:20] LABS: Acetaminophen Less than 10.0 mcg/mL (10.0-30.0); Alcohol Less than 10 mg/dL (Less than 10); Salicylate Less than 8.0 mg/dL (15.0-30.0)
[2021-12-31 12:26] LABS: ALT (SGPT) 11 U/L (8-55); AST (SGOT) 8 U/L (5-34); Alkaline Phosphatase 90 U/L (40-110); Anion Gap 19 mmol/L (10-20); BUN (Urea Nitrogen) 28 mg/dL (8.4-25.7); Bilirubin, Total 0.4 mg/dL (0.2-1.2); CK (CPK) 78 U/L (30-200); Calc. Creatinine Clearance 0 mL/min (70-130); Calcium 9.3 mg/dL (7.8-10.44); Carbon Dioxide 22 mmol/L (23-31); Chloride 100 mmol/L (98-107); Estimated GFR 50; Globulin 4.3 g/dL (2.4-3.5); Glucose 306 mg/dL (80-115); Potassium 4.4 mmol/L (3.5-5.1); Protein, Total 8.3 g/dL (5.8-8.1); Sodium 137 mmol/L (136-145)
== END 2021-12-31 14:10 | disposition home or self-care (01) ==
LOC: BURERS 11:10
DX: E86.0 Dehydration (principal); N17.9 Acute kidney failure, unspecified; I10 Essential (primary) hypertension; E11.65 Type 2 diabetes mellitus with hyperglycemia; F17.210 Nicotine dependence, cigarettes, uncomplicated; Z86.73 Personal history of transient ischemic attack (TIA), and cerebral infarction without residual deficits; Z86.718 Personal history of other venous thrombosis and embolism
CPT/HCPCS: 36415; 80053; 80307; 82550; 84443; 85025; 99285